=== PATIENT | male | born 1965 | race Caucasian/White ===

== ENCOUNTER 2021-02-14 23:32 | Inpatient (IN) | payer MEDICARE, MEDICAID, SELFPAY ==
[2021-02-14 23:37] VITALS: BP 160/107; PULSE 107; RESP 20; TEMP 37.2; O2SAT 96; BMI 30.8
[2021-02-15] VITALS (9 sets, daily range): BP systolic 126–197; BP diastolic 79–97; PULSE 88–108; RESP 16–20; TEMP 36.3–37.1; O2SAT 92–98
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
[2021-02-15] MEDS: haloperidol inj 5 mg/mL INJ 1 mL IVP ×2 (00:44→04:13)
[2021-02-15] MEDS: sodium chloride 0.9% 500 ML 999 ML IV (00:44)
[2021-02-15] MEDS: LORazepam 2 mg/mL INJ 1 mL IVP ×2 (00:44→04:12)
[2021-02-15 00:48] LABS: Basophils # 0.1 10^3/uL (0.0-0.1); Basophils % 0.9 %; Eosinophils # 0.2 10^3/uL (0.0-0.8); Eosinophils % 1.8 %; Hematocrit 47.9 % (42.0-52.0); Hemoglobin 15.7 g/dL (11.7-16.6); Lymphocytes % 32.3 %; Mean Corpuscular HGB Conc 32.8 g/dL (30.0-36.0); Mean Corpuscular Hemoglobin 30.5 pg (28.0-34.0); Mean Platelet Volume 8.9 fL (7.4-10.4); Monocytes # 0.7 10^3/uL (0.2-0.9); Monocytes % 7.5 %; Neutrophils % 57.4 %; Nucleated Red Blood Cells % 0 %; Platelet Count 355 10^3/cmm (130-400); Red Blood Count 5.15 10^6/uL (4.1-5.3); Red Cell Distribution Width 13.2 % (12.1-15.1); White Blood Count 9.4 10^3/uL (4.0-10.0)
[2021-02-15 01:18] LABS: Alanine Aminotransferase 29 U/L (0-41); Albumin Level 4.2 g/dL (3.5-5.2); Alkaline Phosphatase 83 IU/L (40-130); Anion Gap 14.8 (5-19); Aspartate Amino Transferase 20 U/L (0-40); Blood Urea Nitrogen 13 mg/dL (6-20); Calcium 8.7 mg/dL (8.5-10.5); Carbon Dioxide 25 mmol/L (22-29); Chloride 105 mmol/L (98-107); Globulin 3.3 g/dL (1.3-4.6); Glomerular Filtration Rate 138.9 mL/min (90-130); Glucose 116 mg/dL (65-115); Osmolality Calculated 293 mOsm/kg (285-295); Potassium 3.8 mmol/L (3.5-5.1); Sodium 141 mmol/L (136-145); Total Bilirubin 0.8 mg/dL (0.15-1.2); Total Protein 7.5 g/dL (6.6-8.7)
[2021-02-15 01:22] LABS: Acetaminophen < 5.0 ug/mL (10-30); Alcohol Level < 10 mg/dL (0-10); Salicylate < 0.3 mg/dL (3-10)
[2021-02-15 03:06] LABS: Add Urine Microscopic? NO; Charge for UA Resulting for Rev
[2021-02-15 03:09] LABS: Bilirubin Urine 1+ (Negative); Blood Urine Neg (Negative); Glucose Urine UA Norm (Normal); Ketones Urine Negative (Negative); Leukocyte Esterase Urine Negative (Negative); Nitrate Urine Negative (Negative); Protein Urine Neg (Negative); Specific Gravity, Urine 1.025 (1.005-1.030); Urine Appearance Clear (CLEAR); Urine Color Yellow (Yellow); Urobilinogen Urine 1 mg/dL (Negative); pH Urine 5 (5-7)
[2021-02-15 03:39] LABS: Amphetamines Screen Urine Negative (Negative); Barbiturates Screen Urine Negative (Negative); Benzodiazepines Screen Urine Positive (Negative); Cocaine Screen Urine Negative (Negative); Opiate Screen Urine Negative (Negative); PCP Screen Urine Negative (Negative); THC Screen Urine Negative (Negative)
[2021-02-15] MEDS: sodium chloride 0.9% 250 ML IV (04:00)
--- NOTE | 2021-02-15 08:37 | PC.NURSE ---
At 06:00 Patient Ambulated to the bathroom to urinate. Patient apparently lost his balance and fell backwards into the shower. Landing on his posterior. I asked if he hit his head he stated no I landed on my butt . I helped him up he had urinated on his scrubs I assessed him to his bed to and got new scrubs. He changed into clean scrubs. I asked him if he was alright He stated he was fine.
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
[2021-02-16 06:00] VITALS: BP 92/61; PULSE 86; RESP 16; TEMP 37; O2SAT 95
[2021-02-16 14:00] VITALS: BP 122/86; PULSE 84; RESP 17; TEMP 36.9; O2SAT 97
--- NOTE | 2021-02-16 18:35 | P.PN_ITS ---
Subjective NPU Subjective: Interval history: Franklin presents today seeming fairly calm and cooperative. He is able to get a little riled when discussing his circumstance and the reality that he appears to need the injection for his schizophrenia. He expresses frustration with the fact that time he does not feel he needs the medication and begin to discuss that his guardian Alvarado thinks he needs to be at the facility and that he would rather live independently but we discussed the fact that that option is not viable at least that the way he is functioning currently. We discussed the possibility of discharge back to the facility where he lives as we are identifying that this may be baseline behavior and this was just the first time that ever given him his injection. Mental Status Exam MSE Comments: This is an overweight versus obese white male in hospital scrubs with adequate grooming and eye contact. No abnormal movements except for psychomotor retardation, some stiffness with his gait, and a pill-rolling tremor that is notable in his right hand. Cooperative with exam occasionally in mild distress. Speech was slightly decreased rate and volume and monotone. Mood described as pretty good affect slightly flat. Thought process organized. Thought content: Patient denied suicidal or homicidal ideations, there were no delusions reported or noted, he denied current auditory or visual hallucinations. Attention and concentration were intact and memory appeared mostly reliable but none were formally tested. He is alert and oriented times person and place. Insight and judgment are limited, impulse control appears limited in intellectual ability is limited to impaired. Vitals/I&O/Wt Last Vital Signs Temp 98.3 F 02/16/21 22:00 Pulse 86 02/16/21 22:00 Resp 15 02/16/21 22:00 BP 129/86 02/16/21 22:00 Pulse Ox 98 02/16/21 22:00 Data NPU : 02/15/21 00:40 02/15/21 00:40 A&P Additional A&P Information (1) Acute psychosis: (2) Schizophrenia: Additional A&P Information This is a 56-year-old white male with a long history of schizophrenia versus bipolar disorder who presents from a jail facility with some limited history with clear psychosis but lack of willingness to take any new medication. 1. Continue current medication. 2. Continue every 15 minute checks for safety. 3. Encourage individual, group and milieu therapies. 4. We will discharge in the next 48 hours. Involuntary Hold Information 96 Hour Hold: 96 Hour Involuntary Admission: No Attestations NPU Medical Necessity Statement*: Inpatient hospitalization is medically necessary and the clinically appropriate intervention at this time. We will monitor medications and make changes as indicated. Likely length of stay 1-3 days. Coding Level of Care Code Acute Fiberglass Machine Operator for Raulito Hagen
[2021-02-16 22:00] VITALS: BP 129/86; PULSE 86; RESP 15; TEMP 36.8; O2SAT 98
[2021-02-17] MEDS: acetaminophen 325 mg Tablet 650 MG PO (01:54)
[2021-02-17 06:00] VITALS: BP 106/75; PULSE 86; RESP 15; TEMP 37.1; O2SAT 98
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
[2021-02-17 12:18] VITALS: BP 106/75; PULSE 86; RESP 15; TEMP 37.1; O2SAT 98
[2021-02-17 14:00] VITALS: BP 102/63; PULSE 70; RESP 17; TEMP 36.7; O2SAT 97
== END 2021-02-17 15:00 | disposition skilled nursing facility (03) | DRG 885 ==
LOC: ER 02-15 00:22 → NP 02-15 02:44
PROVIDERS: Admitting Provider Psychiatry & Neurology Psychiatry; Emergency Provider Emergency Medicine; PCP Internal Medicine; Visit Provider Psychiatry & Neurology Psychiatry
DX: F23 Brief psychotic disorder (principal); F20.9 Schizophrenia, unspecified
CPT/HCPCS: 80053; 80306; 80307; 81003; 85025; 96361; 96374; 96375; 96376; 99285; J1630; J2060; J7040; J7050

== ENCOUNTER → 2023-02-21 08:27 | Outpatient (BNVA) | payer MEDICARE, MEDICAID, SELFPAY | PROVIDERS: PCP Internal Medicine; Visit Provider Podiatrist Foot & Ankle Surgery | DX: L60.3 Nail dystrophy (principal); M20.41 Other hammer toe(s) (acquired), right foot; M20.42 Other hammer toe(s) (acquired), left foot | CPT/HCPCS: 99203 ==

== ENCOUNTER → 2023-05-30 08:10 | Outpatient (BNVA) | payer MEDICARE, MEDICAID, SELFPAY | PROVIDERS: PCP Internal Medicine; Visit Provider Podiatrist Foot & Ankle Surgery | DX: L60.3 Nail dystrophy (principal); M20.41 Other hammer toe(s) (acquired), right foot; M20.42 Other hammer toe(s) (acquired), left foot; E11.42 Type 2 diabetes mellitus with diabetic polyneuropathy; Z79.4 Long term (current) use of insulin; Z79.84 Long term (current) use of oral hypoglycemic drugs | CPT/HCPCS: 99213 ==

== ENCOUNTER → 2023-12-19 08:50 | Outpatient (BNVA) | payer MEDICARE, MEDICAID, SELFPAY | PROVIDERS: PCP Family Medicine; Visit Provider Podiatrist Foot & Ankle Surgery | DX: L60.3 Nail dystrophy (principal); M20.41 Other hammer toe(s) (acquired), right foot; M20.42 Other hammer toe(s) (acquired), left foot; E11.42 Type 2 diabetes mellitus with diabetic polyneuropathy; Z79.84 Long term (current) use of oral hypoglycemic drugs; Z79.4 Long term (current) use of insulin | CPT/HCPCS: 99213 ==

== ENCOUNTER 2024-06-08 15:52 | Emergency (ER) | payer MEDICARE, MEDICAID, SELFPAY ==
[2024-06-08 15:53] VITALS: BP 116/84; PULSE 95; RESP 19; TEMP 36.6; O2SAT 94; BMI 35.2
--- NOTE | 2024-06-08 15:56 | XRR_ITS ---
PROCEDURE INFORMATION: Exam: XR Chest Exam date and time: 06/08/2024 4:14 PM Age: 59 years old Clinical indication: Chest pressure; Patient HX: Chest pain; Weakness TECHNIQUE: Imaging protocol: Radiologic exam of the chest. Views: 1 view. COMPARISON: No relevant prior studies available. FINDINGS: Lungs: Lung volumes are slightly diminished. No focal consolidation or evidence of pulmonary edema. Pleural spaces: Unremarkable. No pleural effusion. No pneumothorax. Heart/Mediastinum: Unremarkable. No cardiomegaly. Bones/joints: Unremarkable. XR/XR chest 1V portable [id number] IMPRESSION: No acute findings.
--- NOTE | 2024-06-08 15:57 | ECG_ITS ---
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 Measurements Intervals [place] Rate: 91 P: 60 [place]: 182 QRS: 9 QRSD: 80 T: 23 QT: 346 QTc: 426 Interpretive Statements SINUS RHYTHM No previous ECG available for comparison Electronically Signed On 06-08-2024 18:48:45 CDT by Lily Mcclain M.D. [id number]
--- NOTE | 2024-06-08 16:00 | ED_ITS ---
HPI - Chest Pain 2 General: Chief Complaint: Weakness Stated Complaint: weakness; chest pain Time Seen by Provider: 06/08/24 15:52 History of Present Illness: 59-year-old man with a history of parano id schizophrenia, type 2 diabetes, hypertension, hypothyroidism, hyperlipidemia, COPD, and BPH who presents to the emergency room by ambulance from psychiatric lockdown unit at [facility] with reports of chest pain. Currently his chest pain-free. EMS reports that he had a soft blood pressure and they gave him some fluids and has improved some. No known vomiting. Apparently he has not been taking any of his medications for several months now. He had had a right ankle fracture at some point and still complains of pain in that ankle. This is old. Related Data Home Medications Medication Instructions Recorded Confirmed atorvastatin 80 mg tablet tab PO 05/30/23 12/19/23 gabapentin 100 mg capsule cap PO 05/30/23 12/19/23 hydrocodone 10 mg-acetaminophen tab PO 05/30/23 12/19/23 325 mg tablet insulin aspart U-100 100 unit/mL ml SUBCUT 05/30/23 12/19/23 (3 mL) subcutaneous pen (Novolog FlexPen U-100 Insulin aspart) insulin glargine 100 unit/mL (3 ml SUBCUT 05/30/23 12/19/23 mL) subcutaneous pen (Basaglar KwikPen U-100 Insulin) metformin 1,000 mg tablet tab PO 05/30/23 12/19/23 pen needle,diabetic dual safty 30 #100 ea 05/30/23 12/19/23 gauge x 5/16 (Unifine SafeControl) propranolol 40 mg tablet tab PO 05/30/23 12/19/23 semaglutide 0.25 mg or 0.5 mg (2 ml SUBCUT 05/30/23 12/19/23 mg/3 mL) subcutaneous pen injector (Ozempic) Previous Rx's Medication Instructions Recorded aripiprazole lauroxil 1,064 mg/3.9 See Rx Instructions IM .COMPLEX 02/17/21 mL suspension,ext.rel IM syringe #3.9 mL (Aristada) Allergies Allergy/AdvReac Type Severity Reaction Status Date / Time No Known Allergies Allergy Verified 12/19/23 09:10 Review of Systems 2 General: Reports: ROS unobtainable due to medical condition and ROS unobtainable due to mental status Physical Exam 2 Narrative: EXAM NARRATIVE: General: Alert, no acute distress. Skin: Warm, dry. Head: Normocephalic, atraumatic. Neck: Supple, trachea midline. Eye: Extraocular movements are intact. Ears, nose, mouth and throat: Tacky oral mucosa Cardiovascular: Regular, Normal peripheral perfusion. Respiratory: Lungs are clear to auscultation, respirations are non-labored, breath sounds are equal, Symmetrical chest wall expansion. Gastrointestinal: Soft, Nontender, Non distended, Normal bowel sounds. Musculoskeletal: Normal ROM, no deformity. Neurological: Alert but not oriented, No focal neurological deficit observed. Psychiatric: Patient seems confused/demented. Course 2 Vital Signs: Vital signs: Vital Signs Temperature 97.8 F 06/08/24 15:53 Pulse Rate 89 06/08/24 17:25 Respiratory Rate 18 06/08/24 17:25 Blood Pressure 116/84 06/08/24 15:53 Pulse Oximetry 95 06/08/24 16:55 Oxygen Delivery Me thod Room Air 06/08/24 15:53 MDM - Chest Pain Medical Decision Making Differential diagnosis for patient with chest pain includes but is not limited to and based on the above HPI, review of systems and physical exam: Pneumonia. unstable angina. angina. Acute coronary syndrome / AL. Pulmonary embolism. Costochondritis / musculoskeletal. Pleurisy. Pericarditis. Esophageal spasm. Pancreatis. Cholecystitis. Orders placed to evaluate differential diagnosis based on the above differential, HPI and physical exam EKG: Time 1558. Rate 91. Normal sinus rhythm, No ST-T changes, no ectopy, normal LA & QRS intervals, This was reviewed and interpreted by myself the ER physician at 1600 Chest x-ray: No acute process. No infiltrate. No pneumothorax. This was reviewed and interpreted by myself the ER physician. Lab Review: Laboratory results were reviewed and interpreted by myself the emergency room physician. Lab work is rather unremarkable. No leukocytosis. No anemia. No renal failure. He does have some slightly elevated glucose. Given fluids and insulin. Troponin negative. I reviewed the patient's medical record. Reexamination: Patient remained stable. No increased work of breathing. Apparently he is at his baseline mental status. No focal motor deficits. Assessment and plan: Dehydration Noncardiac chest pain Hyperglycemia - Discharged home - Discussed findings and plan with patient. Answered any questions. - All laboratory values were reviewed and interpreted personally by myself, the ER physician - All imaging was reviewed and interpreted personally by myself, the ER physician. - Evaluation and treatment of this problem were appropriate in the emergency setting Lab Data 06/08/24 16:07 06/08/24 16:07 Radiology Impressions Chest X-Ray 06/08/24 15:56 IMPRESSION: No acute findings. Laboratory Results WBC 9.74 10^3/uL (3.29-11.43) 06/08/24 16:07 RBC 5.09 10^6/uL (3.85-5.65) 06/08/24 16:07 Hgb 15.70 g/dL (11.27-16.99) 06/08/24 16:07 Hct 46.1 % (37-53) 06/08/24 16:07 MCV 90.6 fl (82-101) 06/08/24 16:07 MCH 30.8 pg (27-33) 06/08/24 16:07 MCHC 34.1 g/dL (30-55) 06/08/24 16:07 RDW 12.1 % (12.1-15.1) 06/08/24 16:07 Plt Count 272 10^3/cmm (157-399) 06/08/24 16:07 MPV 9.0 fL (7.4-10.4) 06/08/24 16:07 Neut % (Auto) 58.7 % 06/08/24 16:07 Lymph % (Auto) 30.4 % 06/08/24 16:07 [place] % (Auto) 7.7 % 06/08/24 16:07 Eos % (Auto) 2.2 % 06/08/24 16:07 Baso % (Auto) 0.8 % 06/08/24 16:07 Neut # (Auto) 5.72 10^3/uL (1.8-7.7) 06/08/24 16:07 Lymph # (Auto) 3.0 10^3/uL (0.8-4.8) 06/08/24 16:07 [place] # (Auto) 0.8 10^3/uL (0.2-0.9) 06/08/24 16:07 Eos # (Auto) 0.2 10^3/uL (0.0-0.8) 06/08/24 16:07 Baso # (Auto) 0.1 10^3/uL (0.0-0.1) 06/08/24 16:07 Nucleated RBC % (auto) 0 % 06/08/24 16:07 Nucleated RBCs # 0.0 /100WBC 06/08/24 16:07 Sodium 134 mmol/L (136-145) L 06/08/24 16:07 Potassium 4.3 mmol/L (3.5-5.1) 06/08/24 16:07 Chloride 95 mmol/L (98-107) L 06/08/24 16:07 Carbon Dioxide 28 mmol/L (22-29) 06/08/24 16:07 Anion Gap 15.3 (5-19) 06/08/24 16:07 BUN 13 mg/dL (8-23) 06/08/24 16:07 Creatinine 0.8 mg/dL (0.7-1.2) 06/08/24 16:07 GFR Calculation 98.6 mL/min (90-130) 06/08/24 16:07 Glucose 302 mg/dL (65-115) H 06/08/24 16:07 Calculated Osmolality 289 mOsm/kg (285-295) 06/08/24 16:07 Lactic Acid 2.0 mmol/L (0.5-2.2) 06/08/24 16:07 Calcium 8.9 mg/dL (8.5-10.5) 06/08/24 16:07 Total Bilirubin 0.5 mg/dL (0.15-1.2) 06/08/24 16:07 AST 38 U/L (0-40) 06/08/24 16:07 ALT 39 U/L (0-41) 06/08/24 16:07 Alkaline Phosphatase 81 U/L (40-130) 06/08/24 16:07 Ammonia 40 umol/L (16-60) 06/08/24 16:07 Troponin T Baseline 11 ng/L (0-15) 06/08/24 16:07 C-Reactive Protein 3.0 mg/L (0.0-4.9) 06/08/24 16:07 Total Protein 6.5 g/dL (6.6-8.7) L 06/08/24 16:07 Albumin 3.9 g/dL (3.5-5.2) 06/08/24 16:07 Globulin 2.6 g/dL (1.3-4.6) 06/08/24 16:07 Procalcitonin 0.10 ng/mL (0-0.5) 06/08/24 16:07 Urine Color Yellow (Yellow) 06/08/24 15:33 Urine Appearance Clear (CLEAR) 06/08/24 15:33 Urine pH 6.0 (5-7) 06/08/24 15:33 Ur Specific [place] 1.020 (1.005-1.030) 06/08/24 15:33 Urine Protein Negative (Negative) 06/08/24 15:33 Urine Glucose (UA) 3+ (Normal) H 06/08/24 15:33 Urine Ketones Negative (Negative) 06/08/24 15:33 Urine Blood Negative (Negative) 06/08/24 15:33 Urine Nitrate Negative (Negative) 06/08/24 15:33 Urine Bilirubin Negative (Negative) 06/08/24 15:33 Urine Urobilinogen 1.0 mg/dL (Negative) 06/08/24 15:33 Ur Leukocyte Esterase Negative (Negative) 06/08/24 15:33 Urine RBC 0-2 /hpf (0-2) 06/08/24 15:33 Urine WBC 0-5 /hpf (0-5) 06/08/24 15:33 Ur Squamous Epith Cells 0-5 /hpf (0-5) 06/08/24 15:33 Amorphous Sediment Not Reportable 06/08/24 15:33 Urine Bacteria None seen /hpf (NONE) 06/08/24 15:33 Hyaline Casts 0-4 /lpf H 06/08/24 15:33 Urine Opiates Screen Negative ng/mL (Negative) 06/08/24 15:33 Acetaminophen < 5.0 ug/mL (10-30) L 06/08/24 16:07 Ur Barbiturates Screen Negative ng/mL (Negative) 06/08/24 15:33 Ur Phencyclidine Scrn Negative ng/mL (Negative) 06/08/24 15:33 Ur Amphetamines Screen Negative ng/mL (Negative) 06/08/24 15:33 U Benzodiazepines Scrn Negative ng/mL (Negative) 06/08/24 15:33 Urine Cocaine Screen Negative ng/mL (Negative) 06/08/24 15:33 U Marijuana (THC) Screen Negative ng/mL (Negative) 06/08/24 15:33 Ethyl Alcohol < 10 mg/dL (0-10) 06/08/24 16:07 All radiology interpretation(s) finalized by discharge Discharge Plan Discharge Patient Disposition: Home Clinical Impression: Dehydration, Hyperglycemia, Non-cardiac chest pain Condition: Stable Prescriptions: No Action propranolol 40 mg tablet PO gabapentin 100 mg capsule PO metformin 1,000 mg tablet PO atorvastatin 80 mg tablet PO Ozempic 0.25 mg or 0.5 mg (2 mg/3 mL) pen injector SUBCUT insulin glargine [Basaglar KwikPen U-100 Insulin] 100 unit/mL (3 mL) insulin pen SUBCUT (DME) Unifine SafeControl 30 gauge x 5/16 needle See Rx Instructions .ROUTE .MEDSUPPLY Qty: 100 Rx Instructions: As directed insulin aspart U-100 [Novolog FlexPen U-100 Insulin] 100 unit/mL (3 mL) insulin pen SUBCUT hydrocodone-acetaminophen 10-325 mg tablet PO Aristada 1,064 mg/3.9 mL suspension,extended rel syring See Rx Instructions .ROUTE .COMPLEX Qty: 3.9 0RF Rx Instructions: intramuscularly per package directions Discharge Orders: Discharge ED (Routine); Ordered 06/08/24 Ordered By: Toña Wang Referrals: Franklin Osei MD [Primary Care Provider] - Discharge Diet: Usual diet Discharge Activity: Resume usual activity Patient Instructions: Diabetic Hyperglycemia (ED) Activity Restrictions/Additional Instructions: Thank you for choosing [facility] for your healthcare needs today. Please realize this is an emergency room and that we are providing you with a medical screening exam and this may not be complete and all inclusive of all the testing and or work up that you may need to determine your ailment or severity of your illness. You have been screened and evaluated and felt safe for discharge. Health conditions do change or evolve sometimes and as such it is important that you follow up with your Primary Doctor to be re checked, 3-5 days is a general good time frame for follow up. You are always welcome to return to the ED for re assessment if your symptoms are worsening or you have new concerns Coding Level of Care Code ED Cruller Maker for Raulito Hagen
[2024-06-08 16:14] LABS: Basophils # 0.1 10^3/uL (0.0-0.1); Basophils % 0.8 %; Eosinophils # 0.2 10^3/uL (0.0-0.8); Eosinophils % 2.2 %; Hematocrit 46.1 % (37-53); Lymphocytes % 30.4 %; Mean Corpuscular HGB Conc 34.1 g/dL (30-55); Mean Corpuscular Hemoglobin 30.8 pg (27-33); Mean Corpuscular Volume 90.6 fl (82-101); Monocytes # 0.8 10^3/uL (0.2-0.9); Monocytes % 7.7 %; Neutrophils # 5.72 10^3/uL (1.8-7.7); Neutrophils % 58.7 %; Nucleated Red Blood Cells % 0 %; Platelet Count 272 10^3/cmm (157-399); Red Blood Count 5.09 10^6/uL (3.85-5.65); Red Cell Distribution Width 12.1 % (12.1-15.1); White Blood Count 9.74 10^3/uL (3.29-11.43)
[2024-06-08 16:33] LABS: Troponin(5th) Baseline 11 ng/L (0-15)
[2024-06-08 16:34] LABS: Alanine Aminotransferase 39 U/L (0-41); Albumin Level 3.9 g/dL (3.5-5.2); Alkaline Phosphatase 81 U/L (40-130); Blood Urea Nitrogen 13 mg/dL (8-23); Calcium 8.9 mg/dL (8.5-10.5); Carbon Dioxide 28 mmol/L (22-29); Chloride 95 mmol/L (98-107); Creatinine Clr Calc Pharmacy 137.5467; Globulin 2.6 g/dL (1.3-4.6); Glomerular Filtration Rate 98.6 mL/min (90-130); Glucose 302 mg/dL (65-115); Osmolality Calculated 289 mOsm/kg (285-295); Sodium 134 mmol/L (136-145); Total Bilirubin 0.5 mg/dL (0.15-1.2); Total Protein 6.5 g/dL (6.6-8.7)
[2024-06-08 16:35] LABS: Ammonia 40 umol/L (16-60)
[2024-06-08 16:46] LABS: Acetaminophen < 5.0 ug/mL (10-30); Alcohol Level < 10 mg/dL (0-10)
[2024-06-08 16:47] LABS: Anion Gap 15.3 (5-19); Potassium 4.3 mmol/L (3.5-5.1)
[2024-06-08 16:48] LABS: Aspartate Amino Transferase 38 U/L (0-40)
[2024-06-08 16:55] VITALS: O2SAT 95
[2024-06-08 17:25] VITALS: PULSE 89; RESP 18
[2024-06-08 17:47] LABS: Bilirubin Urine Negative (Negative); Blood Urine Negative (Negative); Glucose Urine UA 3+ (Normal); Ketones Urine Negative (Negative); Leukocyte Esterase Urine Negative (Negative); Nitrate Urine Negative (Negative); Protein Urine Negative (Negative); Urine Appearance Clear (CLEAR); Urine Color Yellow (Yellow)
[2024-06-08 17:49] LABS: Bacteria Urine None Seen /hpf; Hyaline Casts Urine 0-4 /lpf; RBC Urine 0-2 /hpf (0-2); Squamous Epithelial Cell Urine 0-5 /hpf (0-5); WBC Urine 0-5 /hpf (0-5)
[2024-06-08 17:53] LABS: Amphetamines Screen Urine Negative (Negative); Barbiturates Screen Urine Negative (Negative); Benzodiazepines Screen Urine Negative (Negative); Cocaine Screen Urine Negative (Negative); Opiate Screen Urine Negative (Negative); PCP Screen Urine Negative (Negative); THC Screen Urine Negative (Negative)
--- NOTE | 2024-06-08 17:57 | ECG_ITS ---
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 Measurements Intervals [place] Rate: 87 P: 57 [place]: 189 QRS: 16 QRSD: 89 T: 30 QT: 359 QTc: 432 Interpretive Statements SINUS RHYTHM WITH OCCASIONAL SUPRAVENTRICULAR PREMATURE COMPLEXES Compared to ECG 06/08/2024 15:58:52 No significant changes Electronically Signed On 06-08-2024 18:54:29 CDT by Lily Mcclain M.D. [id number]
[2024-06-08 18:11] VITALS: PULSE 83; RESP 15
[2024-06-08] MEDS: insulin regular-human 100 units/1 mL 10 UNIT IVP (18:18)
[2024-06-08] MEDS: sodium chloride 0.9% 1,000 ML 999 ML IV (18:18)
[2024-06-09] VITALS (7 sets, daily range): BP systolic 110–130; BP diastolic 68–90; PULSE 68–102; RESP 12–16; O2SAT 91–98
== END 2024-06-09 08:31 | disposition home or self-care (01) ==
PROVIDERS: Emergency Provider Emergency Medicine; PCP Family Medicine
DX: R07.89 Other chest pain (principal); E86.0 Dehydration; E11.65 Type 2 diabetes mellitus with hyperglycemia; Z79.85 Long-term (current) use of injectable non-insulin antidiabetic drugs; Z79.4 Long term (current) use of insulin; Z79.84 Long term (current) use of oral hypoglycemic drugs
CPT/HCPCS: 71045; 80053; 80306; 80307; 81001; 82140; 83605; 84145; 84484; 85025; 86140; 93005; 96374; 99285; J1815; J7030